=== PATIENT | female | born 1960 | race Caucasian/White ===

== ENCOUNTER → 2016-12-15 | Outpatient (CLI) | payer BC ==
[~2016-12-15] MED LIST: CLD600T PO; DCL250C PO; DCS100C PO; LEVO500T69 PO; METR500T PO; MULT-608 PO; ROSU5TAB PO; fiber supplement
== END ==
LOC: RAD 09:44
PROVIDERS: ATTEND Internal Medicine Hematology & Oncology
DX: Z12.31 Encounter for screening mammogram for malignant neoplasm of breast (principal)
CPT/HCPCS: 77067

== ENCOUNTER 2017-01-22 11:00 | Outpatient (RCR) | payer BC ==
[2017-01-15 16:02] LABS: BASOPHILS % (AUTO) 1 % (0-10); EOSINOPHILS # (AUTO) 0.2 10^3/uL (0.0-0.3); EOSINOPHILS % (AUTO) 4 % (0-10); LYMPHOCYTES # (AUTO) 1.1 X 10^3 (1.0-4.0); LYMPHOCYTES % (AUTO) 22 % (12-44); MEAN CORPUSCULAR HEMOGLOBIN 29 PG (25-34); MEAN CORPUSCULAR HGB CONC 33 G/DL (32-36); MEAN CORPUSCULAR VOLUME 88 FL (80-99); MONOCYTES # (AUTO) 0.4 X 10^3 (0.0-1.0); MONOCYTES % (AUTO) 8 % (0-12); NEUTROPHILS # (AUTO) 3.3 X 10^3 (1.8-7.8); NEUTROPHILS % (AUTO) 65 % (42-75); PLATELET COUNT 211 10^3/uL (130-400); RED BLOOD COUNT 4.36 10^6/uL (4.35-5.85); RED CELL DISTRIBUTION WIDTH 12.5 % (10.0-14.5); WHITE BLOOD COUNT 5.1 10^3/uL (4.3-11.0)
[2017-01-15 16:30] LABS: ANION GAP 5 MMOL/L (5-14); BLOOD UREA NITROGEN 15 MG/DL (7-18); BUN/CREATININE RATIO 19; CARBON DIOXIDE 27 MMOL/L (21-32); CHLORIDE 106 MMOL/L (98-107); CREATININE SERUM 0.78 MG/DL (0.60-1.30); GFR ESTIMATED > 60; GLUCOSE 85 MG/DL (70-105); POTASSIUM 5.1 MMOL/L (3.6-5.0); SODIUM 138 MMOL/L (135-145)
== END 2017-01-27 12:47 | disposition home or self-care (01) ==
LOC: PAR 11:00
PROVIDERS: ATTEND Internal Medicine Hematology & Oncology
DX: Z08 Encounter for follow-up examination after completed treatment for malignant neoplasm (principal); Z85.3 Personal history of malignant neoplasm of breast; D72.819 Decreased white blood cell count, unspecified; Z90.11 Acquired absence of right breast and nipple; Z92.21 Personal history of antineoplastic chemotherapy; Z92.3 Personal history of irradiation
CPT/HCPCS: 36415; 80048; 85025; 99213

== ENCOUNTER → 2017-12-17 | Outpatient (CLI) | payer BC ==
--- NOTE | 2017-12-17 14:29 | Diagnostic Imaging Report ---
INDICATION: Digital mammogram bilateral screening with 3-D tomosynthesis. This study was compared to the prior exams of 12/15/16, 12/14/15 and 12/12/14. At this time, there are no current complaints. The current study was also evaluated with a Computer Aided Detection (CAD) system. FINDINGS: There is a mild amount of fibroglandular tissue present in both breasts, similar to the prior exam. No primary or secondary sign of malignancy is noted. 3D tomographic images fail to show any sign of malignancy. IMPRESSION: There is no radiographic evidence for malignancy. ACR BI-RADS Category 1: Negative Result letter will be mailed to the patient. Note: At least 10% of breast cancer is not imaged by mammography. Dictated by: Dictated on workstation # [id number]
== END ==
LOC: RAD 09:29
PROVIDERS: ATTEND Internal Medicine Hematology & Oncology
DX: Z12.31 Encounter for screening mammogram for malignant neoplasm of breast (principal); C50.919 Malignant neoplasm of unspecified site of unspecified female breast; D72.819 Decreased white blood cell count, unspecified
CPT/HCPCS: 77067

== ENCOUNTER → 2018-08-06 | Outpatient (CLI) | payer BC | LOC: CARD 07:43 | PROVIDERS: ATTEND Internal Medicine Interventional Cardiology | DX: R07.89 Other chest pain (principal); E78.5 Hyperlipidemia, unspecified; R00.2 Palpitations | CPT/HCPCS: 93225; 93226 ==

== ENCOUNTER 2018-08-10 11:46 | Outpatient (RCR) | payer BC | END 2018-11-08 | disposition home or self-care (01) | LOC: CARD 11:46 | PROVIDERS: ATTEND Internal Medicine Interventional Cardiology | DX: R07.89 Other chest pain (principal); E78.5 Hyperlipidemia, unspecified; R00.2 Palpitations | CPT/HCPCS: 93270 ==

== ENCOUNTER → 2018-08-16 | Outpatient (CLI) | payer BC | LOC: CARD 10:24 | PROVIDERS: ATTEND Internal Medicine Interventional Cardiology | DX: R07.89 Other chest pain (principal); E78.5 Hyperlipidemia, unspecified; R00.2 Palpitations | CPT/HCPCS: 93306 ==

== ENCOUNTER → 2018-09-30 | Day surgery (SDC) | payer BC ==
[~2018-09-30] VITALS: Ht 165.1 cm; Wt 87.5 kg
[~2018-09-30] MED LIST changes: +LIDOCAINE 1% INJ 20 ML 20 ML VIAL INJ ONE; +LIDOCAINE 1% INJ 20 ML 20 ML VIAL ONE
--- OUTSIDE RECORDS SUMMARY | 2018-09-30 09:49 | XMS REPORT | Continuity of Care Document ---
Author Organization Unknown Address Unknown Allergies Active Description Code Type Severity Reaction Onset Reported/Identified Relationship to Patient Clinical Status Yes NKANo Known Allergies NKA Miscellaneous Allergy Unknown N/A 08/27/2006 Medications There is no data. Problems Date Dx Coded Attending Type Code Diagnosis Diagnosed By 04/23/1246 BHASKRA BEEBE MD, Ot D72.819 DECREASED WHITE BLOOD CELL COUNT, UNSPEC 04/23/1246 BHASKAR BEEBE MD, Ot08 ENCNTR FOR FOLLOW-UP EXAM AFTER TRTMT FO 04/23/1246 BHASKAR BEEBE MD Ot Z85.3 PERSONAL HISTORY OF MALIGNANT NEOPLASM O 04/23/1246 BHASKAR BEEBE MD, Ot Z90.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 04/23/1246 BHASKAR BEEBE MD Ot Z92.21 PERSONAL HISTORY OF ANTINEOPLASTIC CHEMO 04/23/1246 BHASKAR BEEBE MD Ot Z92.3 PERSONAL HISTORY OF IRRADIATION 04/23/1641 BHASKAR BEEBE MD Ot D72.819 DECREASED WHITE BLOOD CELL COUNT, UNSPEC 04/23/1641 BHASKAR BEEBE MD, Ot Z08 ENCNTR FOR FOLLOW-UP EXAM AFTER TRTMT FO 04/23/1641 BHASKAR BEEBE MD, Ot Z85.3 PERSONAL HISTORY OF MALIGNANT NEOPLASM O 04/23/1641 BHASKAR BEEBE MD, Ot Z90.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 04/23/1641 BHASKAR BEEBE MD, Ot Z92.21 PERSONAL HISTORY OF ANTINEOPLASTIC CHEMO 04/23/1641 BHASKAR BEEBE MD, Ot Z92.3 PERSONAL HISTORY OF IRRADIATION 09/08/2010 Ot 562.11 DIVERTICULITIS COLON (W/O MENT OF HEMORR 09/08/2010 Ot V10.05 HX OF COLONIC MALIGNANCY 09/08/2010 Ot V10.3 HX OF BREAST MALIGNANCY 09/08/2010 Ot V45.71 ACQUIRED ABSENCE OF BREAST AND NIPPLE 09/08/2010 Ot V45.77 ACQRD ABSENCE OF GENITAL ORGANS 10/28/2010 Ot 211.4 BENIGN NEOPL RECTUM/ANUS 10/28/2010 Ot 562.10 DIVERTICULOSIS COLON (W/O MENT OF HEMORR 05/22/2011 Ot 682.2 CELLULITIS OF TRUNK 05/22/2011 Ot 996.69 INFEC INFLAM REACT DUE INTRN PROSTHTIC D 05/22/2011 Ot V03.82 PROPHYLACTIC VACC AGAINST STREPTOCOCCUS 06/01/2012 Ot V10.3 HX OF BREAST MALIGNANCY 06/01/2012 Ot V45.71 ACQUIRED ABSENCE OF BREAST AND NIPPLE 06/01/2012 Ot V45.77 ACQRD ABSENCE OF GENITAL ORGANS 06/01/2012 Ot V58.69 OTH MED,LT, CURRENT USE 06/01/2012 Ot V67.2 CHEMOTHERAPY FOLLOW-UP 07/24/2012 Ot 442.83 SPLENIC ARTERY ANEURYSM 07/24/2012 Ot 562.11 DIVERTICULITIS COLON (W/O MENT OF HEMORR 07/24/2012 Ot 789.00 ABDOMINAL PAIN, UNSPECIFIED SITE 01/31/2013 BHASKAR BEEBE MD Ot V10.3 HX OF BREAST MALIGNANCY 01/31/2013 BHASKAR BEEBE MD Ot V45.71 ACQUIRED ABSENCE OF BREAST AND NIPPLE 01/31/2013 BHASKAR BEEBE MD Ot V58.69 OTH MED,LT,CURRENT USE 01/31/2013 BHASKAR BEEBE MD Ot V67.2 CHEMOTHERAPY FOLLOW-UP 01/30/2014 BHASKAR BEEBE MD Ot V10.3 HX OF BREAST MALIGNANCY 01/30/2014 BHASKAR BEEBE MD Ot V45.71 ACQUIRED ABSENCE OF BREAST AND NIPPLE 01/30/2014 BHASKAR BEEBE MD Ot V58.69 OTH MED,LT,CURRENT USE 01/30/2014 BHASKAR BEEBE MD Ot V67.2 CHEMOTHERAPY FOLLOW-UP 12/27/2014 BHASKAR BEEBE MD Ot 174.9 12/27/2014 BHASKAR BEEBE MD Ot V76.11 02/08/2015 BHASKAR BEEBE MD Ot V10.3 HX OF BREAST MALIGNANCY 02/08/2015 BHASKAR BEEBE MD Ot V45.71 ACQUIRED ABSENCE OF BREAST AND NIPPLE 02/08/2015 BHASKAR BEEBE MD Ot V58.69 OTH MED,LT,CURRENT USE 02/08/2015 BHASKAR BEEBE MD Ot V67.2 CHEMOTHERAPY FOLLOW-UP 02/08/2015 BHASKAR BEEBE MD Ot Z85.3 PERSONAL HISTORY OF MALIGNANT NEOPLASM O 02/08/2015 BHASKAR BEEBE MD Ot Z90.10 ACQUIRED ABSENCE OF UNSPECIFIED BREAST A 08/24/2015 Ot Z01.818 ENCOUNTER FOR OTHER PREPROCEDURAL EXAMIN 08/27/2015 Ot K57.90 DVRTCLOS OF INTEST, PART UNSP, W/O PERF 08/27/2015 Ot K64.4 RESIDUAL HEMORRHOIDAL SKIN TAGS 08/27/2015 Ot K64.8 OTHER HEMORRHOIDS 08/27/2015 Ot Z12.11 ENCOUNTER FOR SCREENING FOR MALIGNANT NE 08/27/2015 Ot Z83.71 FAMILY HISTORY OF COLONIC POLYPS 08/27/2015 Ot Z86.010 PERSONAL HISTORY OF COLONIC POLYPS 08/27/2015 Ot Z01.818 08/28/2015 Ot K57.90 08/28/2015 Ot K64.4 08/28/2015 Ot K64.8 08/28/2015 Ot Z12.11 08/28/2015 Ot Z83.71 08/28/2015 Ot Z86.010 08/30/2015 Ot Z01.818 12/14/2015 Ot 562.10 DIVERTICULOSIS COLON (W/O MENT OF HEMORR 12/14/2015 Ot V10.3 HX OF BREAST MALIGNANCY 12/14/2015 Ot V76.11 SCRN MAMMO- HIGH RISK PT, MALIGNANT NEOPL 12/14/2015 Ot 682.2 CELLULITIS OF TRUNK 12/14/2015 Ot 682.2 CELLULITIS OF TRUNK 12/14/2015 Ot 682.2 CELLULITIS OF TRUNK 12/14/2015 Ot V10.3 HX OF BREAST MALIGNANCY 12/14/2015 Ot V45.71 ACQUIRED ABSENCE OF BREAST AND NIPPLE 12/14/2015 Ot V45.77 ACQRD ABSENCE OF GENITAL ORGANS 12/14/2015 Ot V58.69 OTH MED,LT, CURRENT USE 12/14/2015 Ot V67.2 CHEMOTHERAPY FOLLOW-UP 12/14/2015 Ot 174.9 MALIGN NEOPL BREAST NOS 12/14/2015 Ot V76.11 SCRN MAMMO- HIGH RISK PT, MALIGNANT NEOPL 12/14/2015 Ot 682.2 CELLULITIS OF TRUNK 12/14/2015 Ot 791.9 ABN URINE FINDINGS NEC 12/14/2015 Ot V72.83 EXAM PRE- OPERATIVE NEC 12/14/2015 Ot 733.00 OSTEOPOROSIS NOS 12/14/2015 Ot 782.0 SKIN SENSATION DISTURB 12/14/2015 Ot 789.00 ABDOMINAL PAIN, UNSPECIFIED SITE 12/14/2015 Ot 211.3 BENIGN NEOPLASM LG BOWEL 12/14/2015 Ot 562.10 DIVERTICULOSIS COLON (W/O MENT OF HEMORR 12/14/2015 Ot V16.0 FAMILY HX-GI MALIGNANCY 12/14/2015 Ot V72.84 EXAM PRE- OPERATIVE NOS 12/14/2015 Ot 719.42 JOINT PAIN- UP/ARM 12/14/2015 Ot 719.45 JOINT PAIN- PELVIS 12/14/2015 Ot V10.3 HX OF BREAST MALIGNANCY 12/14/2015 BHASKAR BEEBE MD Ot V76.12 OTH SCREEN MAMMO-MALIGN NEOPLASM OF LEXY 12/14/2015 Ot 793.19 OTHER NONSPECIFIC ABNORMAL FINDING OF ADELIA 12/14/2015 BHASKAR BEBEE MD Ot V76.12 OTH SCREEN MAMMO-MALIGN NEOPLASM OF LEXY 12/14/2015 ZHEN MENA, DEAN Felix Ot 721.0 CERVICAL SPONDYLOSIS 12/14/2015 BHASKAR BEEBE MD Ot 174.9 MALIGN NEOPL BREAST NOS 12/14/2015 BHASKAR BEEBE MD Ot V76.11 SCRN MAMMO-HIGH RISK PT, MALIGNANT NEOPL 12/17/2015 DEAN FONTAINE MD Ot Z12.31 ENCNTR SCREEN MAMMOGRAM FOR MALIGNANT NE 12/17/2015 DEAN FONTAINE MD Ot Z85.3 PERSONAL HISTORY OF MALIGNANT NEOPLASM O 12/17/2015 DEAN FONTAINE MD Ot Z90.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 12/26/2015 DEAN FONTAINE MD Ot Z12.31 ENCNTR SCREEN MAMMOGRAM FOR MALIGNANT NE 12/26/2015 DEAN FONTAINE MD Ot Z85.3 PERSONAL HISTORY OF MALIGNANT NEOPLASM O 12/26/2015 DEAN FONTAINE MD Ot Z90.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 02/14/2016 BHASKAR BEEBE MD Ot D72.819 DECREASED WHITE BLOOD CELL COUNT, UNSPEC 02/14/2016 BHASKAR BEEBE MD Ot Z08 ENCNTR FOR FOLLOW-UP EXAM AFTER TRTMT FO 02/14/2016 BHASKAR BEEBE MD Ot Z85.3 PERSONAL HISTORY OF MALIGNANT NEOPLASM O 02/14/2016 BHASKAR BEEBE MD Ot Z90.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 02/14/2016 BHASKAR BEEBE MD Ot Z92.21 PERSONAL HISTORY OF ANTINEOPLASTIC CHEMO 02/14/2016 BHASKAR BEEBE MD Ot Z92.3 PERSONAL HISTORY OF IRRADIATION 12/15/2016 Ot 174.9 MALIGN NEOPL BREAST NOS 12/15/2016 Ot V76.11 SCRN MAMMO- HIGH RISK PT, MALIGNANT NEOPL 12/15/2016 Ot 782.0 SKIN SENSATION DISTURB 12/15/2016 Ot 789.00 ABDOMINAL PAIN, UNSPECIFIED SITE 12/15/2016 Ot 211.3 BENIGN NEOPLASM LG BOWEL 12/15/2016 Ot 562.10 DIVERTICULOSIS COLON (W/O MENT OF HEMORR 12/15/2016 Ot V16.0 FAMILY HX-GI MALIGNANCY 12/15/2016 Ot V72.84 EXAM PRE- OPERATIVE NOS 12/15/2016 Ot 719.42 JOINT PAIN- UP/ARM 12/15/2016 Ot 719.45 JOINT PAIN- PELVIS 12/15/2016 Ot V10.3 HX OF BREAST MALIGNANCY 12/15/2016 BHASKAR BEEBE MD Ot V76.12 OTH SCREEN MAMMO-MALIGN NEOPLASM OF LEXY 12/15/2016 Ot 793.19 OTHER NONSPECIFIC ABNORMAL FINDING OF ADELIA 12/15/2016 BHASKAR BEEBE MD Ot V76.12 OTH SCREEN MAMMO-MALIGN NEOPLASM OF LEXY 12/15/2016 ZHEN MENA, DEAN Felix Ot 721.0 CERVICAL SPONDYLOSIS 12/15/2016 BHASKAR BEEBE MD Ot 174.9 MALIGN NEOPL BREAST NOS 12/15/2016 BHASKAR BEEBE MD Ot V76.11 SCRN MAMMO-HIGH RISK PT, MALIGNANT NEOPL 12/15/2016 ZHEN MENA, DEAN Felix Ot Z12.31 ENCNTR SCREEN MAMMOGRAM FOR MALIGNANT NE 12/15/2016 ZHEN MENA, DEAN Felix Ot Z85.3 PERSONAL HISTORY OF MALIGNANT NEOPLASM O 12/15/2016 ZHEN MENA, DEAN Felix Ot Z90.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 12/17/2016 BHASKAR BEEBE MD Ot Z12.31 ENCNTR SCREEN MAMMOGRAM FOR MALIGNANT NE 12/31/2016 BHASKAR BEEBE MD, Ot Z12.31 ENCNTR SCREEN MAMMOGRAM FOR MALIGNANT NE 01/16/2017 BHASKAR BEEBE MD Ot D72.819 DECREASED WHITE BLOOD CELL COUNT, UNSPEC 01/16/2017 BHASKAR BEEBE MD Ot Z08 ENCNTR FOR FOLLOW-UP EXAM AFTER TRTMT FO 01/16/2017 BHASKAR BEEBE MD Ot Z85.3 PERSONAL HISTORY OF MALIGNANT NEOPLASM O 01/16/2017 BHASKAR BEEBE MD Ot Z90.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 01/16/2017 BHASKAR BEEBE MD Ot Z92.21 PERSONAL HISTORY OF ANTINEOPLASTIC CHEMO 01/16/2017 BHASKAR BEEBE MD, Ot Z92.3 PERSONAL HISTORY OF IRRADIATION 01/20/2017 Ot 174.9 MALIGN NEOPL BREAST NOS 01/20/2017 Ot V76.11 SCRN MAMMO- HIGH RISK PT, MALIGNANT NEOPL 01/20/2017 Ot 782.0 SKIN SENSATION DISTURB 01/20/2017 Ot 789.00 ABDOMINAL PAIN, UNSPECIFIED SITE 01/20/2017 Ot 211.3 BENIGN NEOPLASM LG BOWEL 01/20/2017 Ot 562.10 DIVERTICULOSIS COLON (W/O MENT OF HEMORR 01/20/2017 Ot V16.0 FAMILY HX-GI MALIGNANCY 01/20/2017 Ot V72.84 EXAM PRE- OPERATIVE NOS 01/20/2017 Ot 719.42 JOINT PAIN- UP/ARM 01/20/2017 Ot 719.45 JOINT PAIN- PELVIS 01/20/2017 Ot V10.3 HX OF BREAST MALIGNANCY 01/20/2017 BHASKAR BEEBE MD Ot V76.12 OTH SCREEN MAMMO-MALIGN NEOPLASM OF LEXY 01/20/2017 Ot 793.19 OTHER NONSPECIFIC ABNORMAL FINDING OF ADELIA 01/20/2017 BHASKAR BEEBE MD Ot V76.12 OTH SCREEN MAMMO-MALIGN NEOPLASM OF LEXY 01/20/2017 ZHEN MENA, DEAN Felix Ot 721.0 CERVICAL SPONDYLOSIS 01/20/2017 BHASKAR BEEBE MD Ot 174.9 MALIGN NEOPL BREAST NOS 01/20/2017 BHASKAR BEEBE MD Ot V76.11 SCRN MAMMO-HIGH RISK PT, MALIGNANT NEOPL 01/20/2017 DEAN FONTAINE MD Ot Z12.31 ENCNTR SCREEN MAMMOGRAM FOR MALIGNANT NE 01/20/2017 DEAN FONTAINE MD Ot Z85.3 PERSONAL HISTORY OF MALIGNANT NEOPLASM O 01/20/2017 DEAN FONTAINE MD Ot Z90.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 01/20/2017 BHASKAR BEEBE MD Ot Z12.31 ENCNTR SCREEN MAMMOGRAM FOR MALIGNANT NE 01/20/2017 BHASKAR BEEBE MD Ot D72.819 DECREASED WHITE BLOOD CELL COUNT, UNSPEC 01/20/2017 BHASKAR BEEBE MD Ot Z08 ENCNTR FOR FOLLOW-UP EXAM AFTER TRTMT FO 01/20/2017 BHASKAR BEEBE MD Ot Z85.3 PERSONAL HISTORY OF MALIGNANT NEOPLASM O 01/20/2017 BHASKAR BEEBE MD Ot Z90.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 01/20/2017 BHASKAR BEEBE MD Ot Z92.21 PERSONAL HISTORY OF ANTINEOPLASTIC CHEMO 01/20/2017 BHASKAR BEEBE MD Ot Z92.3 PERSONAL HISTORY OF IRRADIATION 01/27/2017 BHASKAR BEEBE MD Ot D72.819 DECREASED WHITE BLOOD CELL COUNT, UNSPEC 01/27/2017 BHASKAR BEEBE MD Ot Z08 ENCNTR FOR FOLLOW-UP EXAM AFTER TRTMT FO 01/27/2017 BHASKAR BEEBE MD Ot Z85.3 PERSONAL HISTORY OF MALIGNANT NEOPLASM O 01/27/2017 BHASKAR BEEBE MD Ot Z90.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 01/27/2017 BHASKAR BEEBE MD Ot Z92.21 PERSONAL HISTORY OF ANTINEOPLASTIC CHEMO 01/27/2017 BHASKAR BEEBE MD Ot Z92.3 PERSONAL HISTORY OF IRRADIATION 12/18/2017 BHASKAR BEEBE MD Ot C50.919 MALIGNANT NEOPLASM OF UNSP SITE OF UNSPE 12/18/2017 BHASKAR BEEBE MD Ot D72.819 DECREASED WHITE BLOOD CELL COUNT, UNSPEC 12/18/2017 BHASKAR BEEBE MD Ot Z12.31 ENCNTR SCREEN MAMMOGRAM FOR MALIGNANT NE 12/18/2017 BHASKAR BEEBE MD Ot C50.919 MALIGNANT NEOPLASM OF UNSP SITE OF UNSPE 12/18/2017 BHASKAR BEEBE MD, Ot D72.819 DECREASED WHITE BLOOD CELL COUNT, UNSPEC 12/18/2017 BHASKAR BEEBE MD, Ot Z12.31 ENCNTR SCREEN MAMMOGRAM FOR MALIGNANT NE 01/22/2018 BHASKAR BEEBE MD Ot D72.819 DECREASED WHITE BLOOD CELL COUNT, UNSPEC 01/22/2018 BHASKAR BEEBE MD Ot Z08 ENCNTR FOR FOLLOW-UP EXAM AFTER TRTMT FO 01/22/2018 BHASKAR BEEBE MD, Ot Z85.3 PERSONAL HISTORY OF MALIGNANT NEOPLASM O 01/22/2018 BHASKAR BEEBE MD, Ot Z90.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 01/22/2018 BHASKAR BEEBE MD, Ot Z92.21 PERSONAL HISTORY OF ANTINEOPLASTIC CHEMO 01/22/2018 BHASKAR BEEBE MD, Ot Z92.3 PERSONAL HISTORY OF IRRADIATION 02/03/2018 BHASKAR BEEBE MD, Ot D72.819 DECREASED WHITE BLOOD CELL COUNT, UNSPEC 02/03/2018 BHASKAR BEEBE MD, Ot Z08 ENCNTR FOR FOLLOW-UP EXAM AFTER TRTMT FO 02/03/2018 BHASKAR BEEBE MD, Ot Z85.3 PERSONAL HISTORY OF MALIGNANT NEOPLASM O 02/03/2018 BHASKAR BEEBE MD, Ot Z90.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 02/03/2018 BHASKAR BEEBE MD, Ot Z92.21 PERSONAL HISTORY OF ANTINEOPLASTIC CHEMO 02/03/2018 BHASKAR BEEBE MD, Ot Z92.3 PERSONAL HISTORY OF IRRADIATION 02/18/2018 BHASKAR BEEBE MD Ot C50.911 MALIGNANT NEOPLASM OF UNSP SITE OF RIGHT 02/18/2018 BHASKAR BEEBE MD Ot C50.912 MALIGNANT NEOPLASM OF UNSPECIFIED SITE O 02/18/2018 BHASKAR BEEBE MD Ot D72.819 DECREASED WHITE BLOOD CELL COUNT, UNSPEC 02/18/2018 BHASKAR BEEBE MD, Ot Z12.31 ENCNTR SCREEN MAMMOGRAM FOR MALIGNANT NE 03/11/2018 BHASKAR BEEBE MD Ot C50.911 MALIGNANT NEOPLASM OF UNSP SITE OF RIGHT 03/11/2018 BHASKAR BEEBE MD Ot C50.912 MALIGNANT NEOPLASM OF UNSPECIFIED SITE O 03/11/2018 XUN MD, MARY-ROSARIO Ot D72.819 DECREASED WHITE BLOOD CELL COUNT, UNSPEC 03/11/2018 BHASKAR BEEBE MD, Ot Z12.31 ENCNTR SCREEN MAMMOGRAM FOR MALIGNANT NE 08/05/2018 BHASKAR BEEBE MD, Ot V76.12 OTH SCREEN MAMMO-MALIGN NEOPLASM OF LEXY 08/05/2018 DEAN FONTAINE MD Ot 721.0 CERVICAL SPONDYLOSIS 08/05/2018 BHASKAR BEEBE MD Ot 174.9 MALIGN NEOPL BREAST NOS 08/05/2018 BHASKAR BEEBE MD, Ot V76.11 SCRN MAMMO-HIGH RISK PT, MALIGNANT NEOPL 08/05/2018 DEAN FONATINE MD Ot Z12.31 ENCNTR SCREEN MAMMOGRAM FOR MALIGNANT NE 08/05/2018 DEAN FONTAINE MD Ot Z85.3 PERSONAL HISTORY OF MALIGNANT NEOPLASM O 08/05/2018 DEAN FONTAINE MD Ot Z90.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 08/05/2018 BHASKAR BEEBE MD, Ot Z12.31 ENCNTR SCREEN MAMMOGRAM FOR MALIGNANT NE 08/05/2018 BHASKAR BEEBE MD Ot C50.911 MALIGNANT NEOPLASM OF UNSP SITE OF RIGHT 08/05/2018 BHASKAR BEEBE MD, Ot C50.912 MALIGNANT NEOPLASM OF UNSPECIFIED SITE O 08/05/2018 BHASKAR BEEBE MD Ot D72.819 DECREASED WHITE BLOOD CELL COUNT, UNSPEC 08/05/2018 BHASKAR BEEBE MD Ot Z12.31 ENCNTR SCREEN MAMMOGRAM FOR MALIGNANT NE 08/05/2018 BHASKAR BEEBE MD, Ot D72.819 DECREASED WHITE BLOOD CELL COUNT, UNSPEC 08/05/2018 BHASKAR BEEBE MD Ot Z08 ENCNTR FOR FOLLOW-UP EXAM AFTER TRTMT FO 08/05/2018 BHASKAR BEEBE MD Ot Z85.3 PERSONAL HISTORY OF MALIGNANT NEOPLASM O 08/05/2018 BHASKAR BEEBE MD Ot Z90.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 08/05/2018 BHASKAR BEEBE MD Ot Z92.21 PERSONAL HISTORY OF ANTINEOPLASTIC CHEMO 08/05/2018 BHASKAR BEEBE MD Ot Z92.3 PERSONAL HISTORY OF IRRADIATION 08/09/2018 Hortencia SHEIKH MD Ot E78.5 HYPERLIPIDEMIA, UNSPECIFIED 08/09/2018 Hortencia SHEIKH MDZWAN Ot R00.2 PALPITATIONS 08/09/2018 AGUILAR MENA, Hortencia BLANCO Ot R07.89 OTHER CHEST PAIN 08/17/2018 AGUILAR MENA, Hortencia BLANCO Ot E78.5 HYPERLIPIDEMIA, UNSPECIFIED 08/17/2018 AGUILAR MENA, Hortencia BLANCO Ot R00.2 PALPITATIONS 08/17/2018 AGUILAR MENA, Hortencia BLANCO Ot R07.89 OTHER CHEST PAIN 08/20/2018 AGUILAR MENA, Hortencia BLANCO Ot E78.5 HYPERLIPIDEMIA, UNSPECIFIED 08/20/2018 AGUILAR MENA, Hortencia BLANCO Ot R00.2 PALPITATIONS 08/20/2018 AGUILAR MENA, Hortencia BLANCO Ot R07.89 OTHER CHEST PAIN 09/03/2018 AGUILAR MENA, Hortencia BLANCO Ot E78.5 HYPERLIPIDEMIA, UNSPECIFIED 09/03/2018 Hortencia SHEIKH MD Ot R00.2 PALPITATIONS 09/03/2018 Hortencia SHEIKH MD Ot R07.89 OTHER CHEST PAIN Procedures There is no data. Results There is no data. Encounters ACCT No. Visit Date/Time Discharge Status Pt. Type Provider Facility Loc./Unit Complaint [id number] 08/16/2018 10:24:00 08/16/2018 23:59:59 CLS Outpatient Hortencia SHEIKH MD [facility] CARD CHEST DISCOMFORT [id number] 08/10/2018 11:46:00 08/10/2018 23:59:59 CLS Outpatient Hortencia SHEIKH MD [facility] CARD CHEST DISCOMFORT [id number] 08/06/2018 07:43:00 08/06/2018 23:59:59 CLS Outpatient Hortencia SHEIKH MD [facility] CARD CHEST DISCOMFORT [id number] 01/21/2018 09:54:00 01/21/2018 23:59:59 CLS Outpatient BHASKAR BEEBE MD [facility] ONC [id number] 12/17/2017 09:29:00 12/17/2017 23:59:59 CLS Outpatient BHASKAR BEEBE MD [facility] RAD BREAST CANCER [id number] 01/22/2017 11:00:00 01/27/2017 12:47:00 DIS Outpatient BHASKAR BEEBE MD [facility] PAR [id number] 12/15/2016 09:44:00 12/15/2016 23:59:59 CLS Outpatient BHASKAR BEEBE MD [facility] RAD Z12.31 SCREENING [id number] 01/31/2016 10:58:00 02/14/2016 16:42:00 DIS Outpatient BHASKAR BEEBE MD [facility] PAR [id number] 12/14/2015 07:21:00 12/14/2015 23:59:59 CLS Outpatient DEAN FONTAINE MD [facility] RAD SCREENING [id number] 02/01/2015 10:38:00 02/08/2015 16:50:00 DIS Outpatient BHASKAR BEEBE MD [facility] PAR LABS/OV [id number] 12/12/2014 08:32:00 12/12/2014 23:59:59 CLS Outpatient BHASKAR BEEBE MD [facility] RAD BREAST CANCER [id number] 01/26/2014 10:05:00 01/30/2014 10:00:00 DIS Outpatient BHASKAR BEEBE MD [facility] PAR LABS/OV [id number] 12/12/2013 09:38:00 12/12/2013 23:59:59 CLS Outpatient BHASKAR BEEBE MD [facility] RAD SCREENING [id number] 06/07/2013 10:26:00 06/07/2013 23:59:59 CLS Outpatient DEAN FONTAINE MD [facility] RAD NECK PAIN,CERVICAL STRESS [id number] 01/27/2013 11:11:00 01/31/2013 17:31:00 DIS Outpatient BHASKAR BEEBE MD [facility] PAR LABS/7 MONTH FU [id number] 12/08/2012 09:45:00 12/08/2012 23:59:59 CLS Outpatient BHASKAR BEEBE MD [facility] RAD SCREENING [id number] 08/27/2015 07:06:00 Document Registration [id number] 08/24/2015 05:34:00 Document Registration [id number] 08/05/2012 10:22:00 Document Registration [id number] 07/23/2012 22:27:00 Document Registration [id number] 05/31/2012 13:55:00 Document Registration [id number] 05/03/2012 11:53:00 Document Registration [id number] 04/08/2012 09:56:00 Document Registration [id number] 04/07/2012 07:55:00 Document Registration [id number] 02/05/2012 11:11:00 Document Registration [id number] 12/08/2011 09:42:00 Document Registration [id number] 06/19/2011 12:45:00 Document Registration [id number] 05/22/2011 05:39:00 Document Registration [id number] 05/15/2011 13:25:00 Document Registration [id number] 05/01/2011 12:10:00 Document Registration [id number] 04/24/2011 12:08:00 Document Registration [id number] 02/26/2011 16:01:00 Document Registration [id number] 12/05/2010 09:58:00 Document Registration [id number] 10/28/2010 06:23:00 Document Registration [id number] 09/06/2010 15:25:00 Document Registration [id number] 09/06/2010 11:05:00 Document Registration [id number] 02/01/2015 11:06:42 ACT Document Registration
[2018-09-30 10:00] VITALS: BP 123/74
--- NOTE | 2018-09-30 12:12 | Implantation of Loop Monitor ---
Implant of Loop Monitior PROCEDURE PHYSICIAN: Safia Vivas MD IMPLANTATION OF LOOP MONITOR REPORT DATE OF PROCEDURE: 09/30/18 ATTENDING PHYSICIAN: Dr. Arik Vivas. PERFORMING PHYSICIAN: Dr. Arik Vivas. INDICATION: PAT, palpitations PREOP DIAGNOSIS: PAT, palpitations POSTOP DIAGNOSIS: PAT, palpitations, s/p implantation of loop recorder. PROCEDURE DETAILS: The patient is a 58 female with history of paroxysmal atrial tachycardia, palpitations. Therefore implantable loop recorder was discussed and agreed with the patient. Informed consent was taken. All risks and complications were discussed at length. The patient was draped and prepped in the usual sterile fashion. Local anesthesia was lidocaine, which was given in the substernal area close to the 4th intercostal space. Loop monitor was implanted according to the protocol. Steri-Strips were placed at the end of the procedure. There were no complications and the patient tolerated the procedure well. The device was interrogated with a voltage of 0.06 mV. ANESTHESIA: Local anesthesia with lidocaine. COMPLICATIONS: None CONTRAST/FLUOROSCOPY: None CONCLUSION: 1. Successful implantation of loop monitor for PAT, palpitations. 2. No complication and the patient tolerated the procedure well. Safia Vivas MD, RS, CCDS Cardiac Electrophysiology Hortencia VIVAS MD September 30, 2018 12:12 pm
== END | disposition home or self-care (01) ==
LOC: CATH 09:46
PROVIDERS: ATTEND Internal Medicine Interventional Cardiology
DX: I47.1 Supraventricular tachycardia (principal); R00.2 Palpitations; Z79.82 Long term (current) use of aspirin; Z79.899 Other long term (current) drug therapy; I25.10 Atherosclerotic heart disease of native coronary artery without angina pectoris; E78.5 Hyperlipidemia, unspecified; Z85.3 Personal history of malignant neoplasm of breast
CPT/HCPCS: 33285

== ENCOUNTER → 2018-12-17 | Outpatient (CLI) | payer BC ==
[~2018-12-17] MED LIST changes: -LIDOCAINE 1% INJ 20 ML 20 ML VIAL INJ ONE; -LIDOCAINE 1% INJ 20 ML 20 ML VIAL ONE
--- NOTE | 2018-12-17 19:49 | Diagnostic Imaging Report ---
INDICATION: Screening. The current study was also evaluated with a Computer Aided Detection (CAD) system. 3-D Tomographic imaging was also performed. Comparison made with prior examinations from 12/17/2017, 12/15/2016, and 12/14/2015. FINDINGS: There are scattered fibroglandular densities bilaterally. There are a few benign-type calcifications. There is no dominant mass, spiculated lesion, or suspicious calcification identified. The skin, nipples, and axillae are unremarkable. IMPRESSION: Benign. ACR BI-RADS Category 2: Benign findings. Result letter will be mailed to the patient. Note: At least 10% of breast cancer is not imaged by mammography. Dictated by: Dictated on workstation # [id number]
== END ==
LOC: CARD 10:11
PROVIDERS: ATTEND Internal Medicine Hematology & Oncology
DX: Z12.31 Encounter for screening mammogram for malignant neoplasm of breast (principal)
CPT/HCPCS: 77067

== ENCOUNTER → 2019-01-20 | Outpatient (CLI) | payer BC ==
[2019-01-20 09:21] LABS: BASOPHILS % (AUTO) 1 % (0-10); EOSINOPHILS # (AUTO) 0.1 10^3/uL (0.0-0.3); EOSINOPHILS % (AUTO) 3 % (0-10); HEMATOCRIT 38 % (35-52); HEMOGLOBIN 12.9 G/DL (11.5-16.0); LYMPHOCYTES # (AUTO) 0.7 X 10^3 (1.0-4.0); LYMPHOCYTES % (AUTO) 20 % (12-44); MEAN CORPUSCULAR HEMOGLOBIN 30 PG (25-34); MEAN CORPUSCULAR HGB CONC 34 G/DL (32-36); MEAN CORPUSCULAR VOLUME 88 FL (80-99); MEAN PLATELET VOLUME 9.3 FL (7.4-10.4); MONOCYTES # (AUTO) 0.4 X 10^3 (0.0-1.0); MONOCYTES % (AUTO) 11 % (0-12); NEUTROPHILS # (AUTO) 2.5 X 10^3 (1.8-7.8); NEUTROPHILS % (AUTO) 66 % (42-75); PLATELET COUNT 201 10^3/uL (130-400); RED CELL DISTRIBUTION WIDTH 12.8 % (10.0-14.5); WHITE BLOOD COUNT 3.8 10^3/uL (4.3-11.0)
[2019-01-20 09:42] LABS: ALANINE AMINOTRANSFERASE 14 U/L (0-55); ALBUMIN 4.3 GM/DL (3.2-4.5); ALKALINE PHOSPHATASE 82 U/L (40-136); BILIRUBIN,TOTAL 0.6 MG/DL (0.1-1.0); BUN/CREATININE RATIO 16; CALCIUM 9.8 MG/DL (8.5-10.1); CARBON DIOXIDE 24 MMOL/L (21-32); CHLORIDE 106 MMOL/L (98-107); CREATININE SERUM 0.86 MG/DL (0.60-1.30); GFR ESTIMATED > 60; GLUCOSE 64 MG/DL (70-105); POTASSIUM 3.9 MMOL/L (3.6-5.0); SODIUM 141 MMOL/L (135-145); TOTAL PROTEIN 7.4 GM/DL (6.4-8.2)
== END ==
LOC: ONC 08:55
PROVIDERS: ATTEND Internal Medicine Hematology & Oncology
DX: Z08 Encounter for follow-up examination after completed treatment for malignant neoplasm (principal); Z85.3 Personal history of malignant neoplasm of breast; Z90.11 Acquired absence of right breast and nipple; Z92.21 Personal history of antineoplastic chemotherapy; Z92.3 Personal history of irradiation
CPT/HCPCS: 36415; 80053; 85025; 99213

== ENCOUNTER → 2019-12-19 | Outpatient (CLI) | payer BC ==
--- NOTE | 2019-12-19 09:39 | Diagnostic Imaging Report ---
INDICATION: Routine screening. COMPARISON: 12/17/2018 and 12/17/2017. TECHNIQUE: 2D and 3D bilateral screening mammography was performed with CAD. FINDINGS: Scattered fibroglandular densities are identified bilaterally. There are scattered benign calcifications in both breasts. No mass or malignant appearing microcalcifications are identified. The axillae are unremarkable. IMPRESSION: No mammographic features suspicious for malignancy are identified. ACR BI-RADS Category 2: Benign findings. Result letter will be mailed to the patient. Note: At least 10% of breast cancer is not imaged by mammography. Dictated by: Dictated on workstation # [id number]
== END ==
LOC: RAD 08:44
PROVIDERS: ATTEND Internal Medicine Hematology & Oncology
DX: Z12.31 Encounter for screening mammogram for malignant neoplasm of breast (principal)
CPT/HCPCS: 77063; 77067

== ENCOUNTER → 2020-01-19 | Outpatient (CLI) | payer BC | LOC: ONC 09:46 | PROVIDERS: ATTEND Internal Medicine Hematology & Oncology | DX: C50.211 Malignant neoplasm of upper-inner quadrant of right female breast (principal); D72.819 Decreased white blood cell count, unspecified; Z90.11 Acquired absence of right breast and nipple; Z92.21 Personal history of antineoplastic chemotherapy; Z79.899 Other long term (current) drug therapy; Z98.82 Breast implant status; Z98.890 Other specified postprocedural states; Z95.818 Presence of other cardiac implants and grafts | CPT/HCPCS: 99213 ==

== ENCOUNTER → 2020-12-19 | Outpatient (CLI) | payer BC ==
--- NOTE | 2020-12-19 10:19 | Diagnostic Imaging Report ---
INDICATION: Routine screening. COMPARISON: 12/19/2019 and 12/17/2018. TECHNIQUE: 2D and 3D bilateral screening mammography was performed with CAD. FINDINGS: Scattered fibroglandular densities are identified bilaterally. No mass or malignant-appearing microcalcifications are seen. The axillae are unremarkable. IMPRESSION: No mammographic features suspicious for malignancy are identified. ACR BI-RADS Category 1: Negative. Result letter will be mailed to the patient. Note: At least 10% of breast cancer is not imaged by mammography. Dictated by: Dictated on workstation # [id number]
== END ==
LOC: RAD 07:29
PROVIDERS: ATTEND Family Medicine
DX: Z12.31 Encounter for screening mammogram for malignant neoplasm of breast (principal)
CPT/HCPCS: 77063; 77067

== ENCOUNTER 2021-02-07 05:42 | Outpatient (CLI) | payer BC ==
[~2021-02-07] VITALS: Ht 165.1 cm; Wt 87.7 kg
[2021-02-07] MEDS ORDERED: LEVO25CA4 PO (09:49)
[2021-02-07] MEDS ORDERED: ASPI-808 PO (09:49)
== END 2021-02-07 14:11 | disposition home or self-care (01) ==
LOC: PREOP 05:42
PROVIDERS: ATTEND Surgery
DX: Z01.818 Encounter for other preprocedural examination (principal)

== ENCOUNTER 2021-02-13 10:50 | Day surgery (SDC) | payer BC ==
[~2021-02-13] VITALS: Ht 165.1 cm; Wt 87.7 kg
[2021-02-13] VITALS (15 sets, daily range): BP systolic 110–123; BP diastolic 70–90
[~2021-02-13 10:50] MED LIST changes: +ASPI-808 PO; +LEVO25CA4 PO
--- NOTE | 2021-02-13 11:13 | Conscious Sedation/ASA ---
Conscious Sedation Pre-Proced Time 11:00 ASA Score 2 For ASA 3 and 4: Consider anesthesia and medical clearance. Also, for patients with a history of failed moderate sedation consider anesthesia. Airway Lungs Heart ASA score ASA 1: a normal healthy patient ASA 2: a patient with a mild systemic disease (mid diabetes, controlled hypertension, obesity ASA 3: a patient with a severe systemic disease that limits activity (angina, COPD, prior Myocardial infarction) ASA 4: a patient with an incapacitating disease that is a constant threat to life (CHF, renal failure) ASA 5: a moribund patient not expected to survive 24 hrs. (ruptured aneurysm) ASA 6: a declared brain- patient whose organs are being harvested. For emergent operations, add the letter E after the classification Mallampati Classification Grade 2 Sedation Plan Analgesia, Amnesia, Plan communicated to team members, Discussed options with patient/fam, Discussed risks with patient/fam The patient is an appropriate candidate to undergo the planned procedure, sedation, and anesthesia. The patient immediately re-assessed prior to indication. BATOOL VIEYRA MD Feb 13, 2021 11:12
--- NOTE | 2021-02-13 11:13 | Progress Note-Pre Operative ---
Pre-Operative Progress Note H&P Reviewed The H&P was reviewed, patient examined and no changes noted. Date Seen by Provider: Feb 13, 2021 Time Seen by Provider: 11:00 Date H&P Reviewed: Feb 13, 2021 Time H&P Reviewed: 11:00 Pre-Operative Diagnosis: screening colo, hx breast ca BATOOL VIEYRA MD Feb 13, 2021 11:13
--- NOTE | 2021-02-13 11:14 | Discharge Inst-Surgical ---
D/C Lap Instructions-JARRELL Follow Up Activity as tolerated High Fiber Diet 25g or more per day Avoid Alcohol, Caffeine, Spicy [place] and Acid foods. Drink 64 fluid oz or more of fluids per day. Symptoms to Report: Fever over 101 degree F, Nausea/Vomiting If any problems/questions: Contact your physician or go to Emergency Room BATOOL VIEYRA MD Feb 13, 2021 11:14
[2021-02-13] MEDS ORDERED: NS IV 500 ML 500 ML IV PRN (11:15)
[2021-02-13] MEDS ORDERED: fentaNYL INJ 100 MCG/2 ML AMP IVP ONE (11:15)
[2021-02-13] MEDS ORDERED: ONDANSETRON 4 MG/2 ML (SDV) Z0FRAN IVP PRN (11:15)
[2021-02-13] MEDS ORDERED: ONDANSETRON 4 MG (ZOFRAN) ORAL DISSOLVE TAB PO PRN (11:15)
[2021-02-13] MEDS ORDERED: LIDOCAINE JELLY 2% 6 ML SYRINGE MM PRN (11:15)
[2021-02-13] MEDS ORDERED: MIDAZOLAM 5 MG/5 ML (VERSED) VIAL IV ONE (11:15)
--- NOTE | 2021-02-13 13:41 | Progress Note-Post Operative ---
Post-Operative Progess Note Surgeon (s)/Echocardiography Technologist (s) Surgeon BATOOL VIEYRA MD Echocardiography Technologist: none Pre-Operative Diagnosis screening colo, hx breast ca Post-Operative Diagnosis moderate-sigmoid diverticulosis, small descending colon polyp(4mm) Procedure & Operative Findings Date of Procedure 02/13/21 Procedure Performed/Findings colonoscopy with bx Anesthesia Type cs Estimated Blood Loss Estimated blood loss (mL): minimal Specimens/Packing Specimens Removed desc colon polyp BATOOL VIEYRA MD Feb 13, 2021 13:41
--- NOTE | 2021-02-13 20:59 | OPERATIVE REPORT ---
DATE OF SERVICE: 02/13/2021 ATTENDING PRIMARY CARE PHYSICIAN: Dr. Morro Lockett. PREOPERATIVE DIAGNOSIS: Screening colonoscopy. POSTOPERATIVE DIAGNOSES: Moderate to severe sigmoid diverticulosis, small polyp of the descending colon approximately 4 mm in size. PROCEDURES PERFORMED: Colonoscopy with polypectomy with cautery. SURGEON: Batool Vieyra MD. ANESTHESIA: Conscious sedation. ESTIMATED BLOOD LOSS: Minimal. FINDINGS: Moderate to severe sigmoid diverticulosis, small polyp of the descending colon approximately 4 mm in size. DISPOSITION: The patient tolerated the procedure well. INDICATIONS FOR PROCEDURE: The patient is a 60-year-old female referred over to us for screening colonoscopy. Her last colonoscopy was approximately five years ago and believes this to be normal. She does report having history of polyps in the past, which have been benign. She does not report any major issues with diarrhea nor constipation as well as no red blood per rectum nor any dark tarry stools. She also does not report any family history of colon cancer. She does have a personal history of breast cancer. DESCRIPTION OF PROCEDURE: The patient was brought to the endoscopy suite and laid in the left lateral decubitus position. After adequate IV pain and sedative medications and conscious sedation anesthesia, a digital rectal examination was performed. No significant hemorrhoids identified. Normal sphincter tone was felt and there were no palpable masses. The endoscope was then intubated to the anus and rectum gently insufflated. The endoscope was then advanced through the valves of [place] of the rectum with no polyps or any neoplasms identified. Through the sigmoid colon, a moderate to severe sigmoid diverticulosis identified. There were no mucosal inflammatory changes to indicate any active diverticulitis. The endoscope was then advanced through the descending colon, where a small polyp identified approximately 4 mm in size. This was biopsied and destroyed with forceps and electrocautery. The endoscope was then advanced to the remainder of the transverse, ascending colon and to the cecum. These segments were normal. The endoscope was then slowly withdrawn while taking a second look and suctioning of residual air with no additional findings. The patient tolerated the procedure well. We will recommend medical management with the incorporation of a high-fiber diet with a fiber supplement, which should equal or exceed 25 grams daily to promote soft stools on a daily basis, which should prevent any further propagation or complications associated with the diverticulosis. We will await the biopsy results of the polyp. If there is a villous component, we would recommend a followup colonoscopy in three years. At this time, she has been getting screening colonoscopies every five years, likely due to her personal history of breast cancer and she may continue on that tract if she wishes. Job ID: [id number] DocumentID: [id number] Dictated Date: 02/13/2021 13:35:10 Administrative Asst Date: 02/13/2021 20:59:05 Dictated By: BATOOL VEIYRA MD
== END 2021-02-13 14:08 | disposition home or self-care (01) ==
LOC: ENDO 10:50
PROVIDERS: ATTEND Surgery
DX: Z12.11 Encounter for screening for malignant neoplasm of colon (principal); K63.5 Polyp of colon; K57.30 Diverticulosis of large intestine without perforation or abscess without bleeding; Z85.3 Personal history of malignant neoplasm of breast; Z79.899 Other long term (current) drug therapy; Z79.890 Hormone replacement therapy; E03.9 Hypothyroidism, unspecified; E78.00 Pure hypercholesterolemia, unspecified; Z83.3 Family history of diabetes mellitus; Z80.3 Family history of malignant neoplasm of breast; Z82.49 Family history of ischemic heart disease and other diseases of the circulatory system
CPT/HCPCS: 88305

== ENCOUNTER → 2021-09-10 | Outpatient (CLI) | payer BC ==
[~2021-09-10] MED LIST changes: +CATHETER FLUSH 10 ML SYR IVP PRN; +REGADENOSON 0.4 MG/5 ML SYR (LEXISCAN) IV ONE
[2021-09-10 09:15] VITALS: BP 118/92
--- NOTE | 2021-09-13 17:30 | STRESS TEST ---
DATE OF SERVICE: 09/10/2021 RESTING AND POST REGADENOSON TECHTENIUM-99M TETROFOSMIN SPECT CT IMAGING CLINICAL DIAGNOSIS: Abnormal electrocardiogram ORDERING PHYSICIAN: Eun Lowe APRN. PRIMARY PHYSICIAN: Dr. Morro Lockett. Baseline images were carried out after injection of 10.25 mCi of technetium-99m Tetrofosmin. This was followed by 0.4 mg Regadenoson and 29.6 mCi of technetium-99m Tetrofosmin for stress imaging. The electrocardiogram showed sinus rhythm at baseline. It did not change significantly with the Regadenoson infusion. The patient reported some shortness of breath, which resolved in a few minutes. Review of images at rest and following stress does not indicate any distinct perfusion defects consistent with significant myocardial ischemia or infarction. Gated images show a normal global left ventricular systolic function with normal regional wall motion. Left ventricular ejection fraction is calculated to be 65%. CONCLUSIONS: 1. No evidence of any significant myocardial ischemia or infarction on this study. 2. Normal regional wall motion. 3. Normal global left ventricular systolic function with a calculated ejection fraction of 65%. Job ID: [id number] DocumentID: [id number] Dictated Date: 09/13/2021 15:01:08 Detailer Date: 09/13/2021 17:29:47 Dictated By: SELMA HILARIO MD, MA, FACP, FACC,
== END ==
LOC: CARD 07:45
PROVIDERS: ATTEND Nurse Practitioner Family
DX: R94.31 Abnormal electrocardiogram [ECG] [EKG] (principal)
CPT/HCPCS: 78452; 93017; A9502

== ENCOUNTER → 2021-12-20 | Outpatient (CLI) | payer BC ==
[~2021-12-20] MED LIST changes: -CATHETER FLUSH 10 ML SYR IVP PRN; -REGADENOSON 0.4 MG/5 ML SYR (LEXISCAN) IV ONE
--- NOTE | 2021-12-20 15:21 | Diagnostic Imaging Report ---
3-D digital mammogram bilateral screening with CAD. This study was compared to the prior exams of 12/19/2020, 12/19/2019 and 12/17/2018. At this time there are no current complaints. The current study was also evaluated with a Computer Aided Detection (CAD) system. FINDINGS: There are scattered fibroglandular densities in both breasts which could obscure a lesion. Overall, there does not appear to have been any significant change when compared to the prior exam. No primary or secondary sign of malignancy is noted. IMPRESSION: There is no radiographic evidence for malignancy ACR BI-RADS Category 1: Negative. Result letter will be mailed to the patient. Note: At least 10% of breast cancer is not imaged by mammography. Dictated by: Dictated on workstation # [id number]
== END ==
LOC: RAD 07:30
PROVIDERS: ATTEND Family Medicine
DX: Z12.31 Encounter for screening mammogram for malignant neoplasm of breast (principal)
CPT/HCPCS: 77063; 77067

== ENCOUNTER → 2022-12-24 | Outpatient (CLI) | payer BC ==
--- NOTE | 2022-12-24 11:06 | Diagnostic Imaging Report ---
Indication: Routine screening. Comparison is made with prior mammogram from 12/20/2021 and 12/19/2020. 2-D and 3-D bilateral screening mammography was performed with CAD. The current study was also evaluated with a Computer Aided Detection (CAD) system. Scattered fibroglandular densities are identified bilaterally. The parenchymal pattern is stable. No dominant mass or malignant-appearing microcalcifications are seen. There are occasional benign calcifications. Axillae are unremarkable. IMPRESSION: BI-RADS Category 2 No mammographic features suspicious for malignancy are identified. ACR BI-RADS Category 2: Benign findings. Result letter will be mailed to the patient. Note: At least 10% of breast cancer is not imaged by mammography. Dictated by: Dictated on workstation # [id number]
== END ==
LOC: RAD 07:00
PROVIDERS: ATTEND Family Medicine
DX: Z12.31 Encounter for screening mammogram for malignant neoplasm of breast (principal)
CPT/HCPCS: 77063; 77067